=== PATIENT | female | born 1945 | race Caucasian/White ===

== ENCOUNTER → 2020-03-01 | Outpatient (CLI) | payer MEDICARE, OTHER | END | disposition home or self-care (01) | LOC: LAB SHORT 12:57 → LAB 12:57 | DX: L08.9 Local infection of the skin and subcutaneous tissue, unspecified (principal) | CPT/HCPCS: 87070; 87205 ==

== ENCOUNTER → 2020-03-05 | Outpatient (CLI) | payer MEDICARE, OTHER | LOC: LAB 10:50 → LAB SHORT 10:50 | DX: L08.9 Local infection of the skin and subcutaneous tissue, unspecified (principal); R21 Rash and other nonspecific skin eruption; L29.9 Pruritus, unspecified | CPT/HCPCS: 87070; 87205 ==

== ENCOUNTER → 2022-01-01 | Outpatient (CLI) | payer MEDICARE | END | disposition home or self-care (01) | LOC: LAB SHORT 15:55 → LAB 15:55 | DX: L08.9 Local infection of the skin and subcutaneous tissue, unspecified (principal) | CPT/HCPCS: 87070; 87075; 87205 ==

== ENCOUNTER 2024-09-04 12:03 | Emergency (ER) | payer MEDICARE, OTHER ==
[~2024-09-04] VITALS: Ht 157.5 cm; Wt 61.7 kg
[2024-09-04 12:27] VITALS: BP 172/95
[2024-09-04] MEDS ORDERED: DICY20 PO (12:41)
== END 2024-09-04 12:41 | disposition home or self-care (01) ==
LOC: ER 12:03
DX: R19.7 Diarrhea, unspecified (principal); R19.15 Other abnormal bowel sounds; M26.602 Left temporomandibular joint disorder, unspecified; Z79.899 Other long term (current) drug therapy; Z88.2 Allergy status to sulfonamides; Z88.1 Allergy status to other antibiotic agents
CPT/HCPCS: 99282